=== PATIENT | female | born 1955 | race Caucasian/White ===

== ENCOUNTER 2018-06-21 15:37 | Outpatient (CLI) | payer BC | END 2018-06-21 15:38 | disposition home or self-care (01) | LOC: BICMAMMO 15:37 | PROVIDERS: ATTEND Internal Medicine | DX: Z12.31 Encounter for screening mammogram for malignant neoplasm of breast (principal) | CPT/HCPCS: 77063; 77067 ==

== ENCOUNTER 2020-01-13 07:38 | Outpatient (CLI) | payer MEDICARE ==
--- NOTE | 2020-01-13 08:32 | BD ---
DEXA bone density examination HISTORY: 64-year-old postmenopausal female for screening. Osteopenia. COMPARISON: None FINDINGS: L1--bone mineral density 0.953 g/sq cm; T score -0.3 L2--bone mineral density 1.157 g/sq cm; T score 1.2 L3--bone mineral density 1.122 g/sq cm; T score 0.3 L4--bone mineral density 1.237 g/sq cm; T score 1.6 Total L1-L4--bone mineral density 1.126 g/sq cm; T score 0.7 Left femoral neck--bone mineral density0.632 g/sq cm; T score -2.0 Total proximal left femur--bone mineral density 0.883 g/sq cm ; T score -0.5 Degenerative changes are seen in the lumbar spine which may falsely elevate bone mineral density and underestimate risk for fracture. IMPRESSION: 1. Normal bone mineralization of the lumbar spine. 2. Moderate osteopenia left femoral neck. 3. The 10 year major osteoporotic risk fracture is 17% with 10 year hip fracture risk of 1.7%.
--- NOTE | 2020-01-13 08:42 | MMO ---
Bilateral MAMMO Bilat Screen [facility]. CLINICAL HISTORY: Patient is 64 years old and is seen for screening. The patient has no family history of breast cancer. The patient has no personal history of cancer. VIEWS: The views performed were: bilateral craniocaudal with tomosynthesis and bilateral mediolateral oblique with tomosynthesis. FILMS COMPARED: The present examination has been compared to a prior imaging study performed at [facility] on 06/21/2018. This study has been interpreted with the assistance of computer-aided detection. MAMMOGRAM FINDINGS: The breasts are heterogeneously dense, which could obscure a lesion on mammography. There are benign appearing calcifications seen in the right breast. There are no suspicious masses, suspicious calcifications, or new areas of architectural distortion. IMPRESSION: THERE IS NO MAMMOGRAPHIC EVIDENCE OF MALIGNANCY. A ROUTINE FOLLOW-UP MAMMOGRAM IN 1 YEAR IS RECOMMENDED. THE RESULTS OF THIS EXAM WERE SENT TO THE PATIENT. ACR BI-RADS Category 2 - Benign finding MAMMOGRAPHY NOTE: 1. A negative mammogram report should not delay a biopsy if a dominant of clinically suspicious mass is present. 2. Approximately 10% to 15% of breast cancers are not detected by mammography. 3. Adenosis and dense breasts may obscure an underlying neoplasm. Reported by: ROMELIA HAMPTON MD Electonically Signed: [id number]
== END 2020-01-13 07:39 | disposition home or self-care (01) ==
LOC: BICMAMMO 07:38
PROVIDERS: ATTEND Internal Medicine
DX: Z12.31 Encounter for screening mammogram for malignant neoplasm of breast (principal); M85.852 Other specified disorders of bone density and structure, left thigh
CPT/HCPCS: 77063; 77067; 77080

== ENCOUNTER 2022-03-07 12:22 | Outpatient (CLI) | payer MEDICARE | END 2022-03-07 12:23 | disposition home or self-care (01) | LOC: BICRAD 12:22 | PROVIDERS: ATTEND Internal Medicine | DX: M54.50 Low back pain, unspecified (principal); M47.816 Spondylosis without myelopathy or radiculopathy, lumbar region | CPT/HCPCS: 72100; 82306; 82607; 82728; 82746; 83540; 83550 ==

== ENCOUNTER 2022-03-22 09:01 | Outpatient (CLI) | payer MEDICARE | END 2022-03-22 09:02 | disposition home or self-care (01) | LOC: MRI 09:01 | PROVIDERS: ATTEND Internal Medicine | DX: M51.36 Other intervertebral disc degeneration, lumbar region (principal); M47.816 Spondylosis without myelopathy or radiculopathy, lumbar region; R20.2 Paresthesia of skin | CPT/HCPCS: 72148 ==

== ENCOUNTER 2022-04-21 13:49 | Outpatient (CLI) | payer MEDICARE | END 2022-04-21 13:50 | disposition home or self-care (01) | LOC: BICCT 13:49 | PROVIDERS: ATTEND Surgery | DX: M48.02 Spinal stenosis, cervical region (principal); M43.12 Spondylolisthesis, cervical region; M47.812 Spondylosis without myelopathy or radiculopathy, cervical region; M40.202 Unspecified kyphosis, cervical region | CPT/HCPCS: 72125 ==

== ENCOUNTER 2022-05-09 10:52 | Outpatient (CLI) | payer MEDICARE | END 2022-05-09 10:53 | disposition home or self-care (01) | LOC: LABBT 10:52 | PROVIDERS: ATTEND Surgery | DX: Z01.818 Encounter for other preprocedural examination (principal); M48.02 Spinal stenosis, cervical region; M50.10 Cervical disc disorder with radiculopathy, unspecified cervical region; M47.22 Other spondylosis with radiculopathy, cervical region; M47.12 Other spondylosis with myelopathy, cervical region; M50.00 Cervical disc disorder with myelopathy, unspecified cervical region | CPT/HCPCS: 80048; 85027; 85610; 85730; 86850; 86900; 86901; 93005; 93010 ==

== ENCOUNTER 2022-05-09 11:00 | Inpatient (IN) | payer MEDICARE ==
[2022-05-09 12:59] LABS: INR-International Normal Ratio 0.9; PTT 24.8 sec (22.0-33.0); Prothrombin Time 10.3 sec (9.5-12.1)
[2022-05-09 13:01] LABS: Hemoglobin 12.9 g/dL (12.0-15.5); Mean Corpuscular HGB CONC 35.1 g/dL (32.0-36.0); Mean Corpuscular Hemoglobin 30.7 pg (27.0-33.0); Mean Corpuscular Volume 87.6 fl (81.6-98.3); Mean Platelet Volume 10.7 fl (7.4-10.4); Platelet Count 256 10x3/uL (150-450); RBC Distribution Width 11.9 % (11.5-14.5); White Blood Cell (WBC) Count 6.1 10x3/uL (3.5-10.5)
[2022-05-09 13:16] LABS: Anion Gap 14 mmol/L (10-20); BUN (Urea Nitrogen) 23 mg/dL (9.8-20.1); Calc. Creatinine Clearance 0 mL/min (70-130); Calcium 9.9 mg/dL (7.8-10.44); Carbon Dioxide 26 mmol/L (23-31); Chloride 103 mmol/L (98-107); Estimated GFR 59; Glucose 96 mg/dL (80-115); Potassium 4.4 mmol/L (3.5-5.1); Sodium 139 mmol/L (136-145)
[2022-05-11 12:22] VITALS: BMI 19.0
[2022-05-12] MEDS ORDERED: Bacitracin Zinc Ointment 30 gm TUBE ONE (06:37)
[2022-05-12] MEDS ORDERED: Thrombin 5000 UNITS/5 ML VIAL ONE (06:37)
[2022-05-12] MEDS ORDERED: Levofloxacin 500 mg/D5W 100 ml Premix Bag ONE (06:40)
[2022-05-12] MEDS ORDERED: Clindamycin/D5W 900 mg/50 ml Premix Bag ONE (06:40)
[2022-05-12] MEDS ORDERED: Scopolamine 1.5 mg/72 hour Patch ONE (06:46)
[2022-05-12] MEDS ORDERED: Metoclopramide HCl 10 MG/2 ML VIAL ONE (06:46)
[2022-05-12] MEDS ORDERED: Famotidine/PF 20 mg/2ml Vial ONE (06:46)
[2022-05-12] MEDS ORDERED: Promethazine HCl 25 MG/ML VIAL ONE (07:06)
[2022-05-12] MEDS ORDERED: Propofol 500 MG/50 ML VIAL ONE (07:07)
[2022-05-12] MEDS ORDERED: fentaNYL PF 100 MCG/2 ML SYRINGE ONE ×2 (07:08→13:52)
[2022-05-12 07:10] LABS: SARS-CoV-2 NAA Rapid Test Not Detected (NotDetected)
[2022-05-12] MEDS ORDERED: Rocuronium Bromide 10 MG/ML (10ML VIAL) ONE (07:32)
[2022-05-12] MEDS ORDERED: Vecuronium 10 MG VIAL ONE (07:32)
[2022-05-12] MEDS ORDERED: Dexamethasone 20 MG/5 ML VIAL ONE (07:32)
[2022-05-12] MEDS ORDERED: NEOSTIGMINE 3 MG/3 ML SYR 3 MG/3 ML SYRINGE ONE (07:32)
[2022-05-12] MEDS ORDERED: Glycopyrrolate 0.2 MG/ML 5 ML SYRINGE ONE (07:32)
[2022-05-12] MEDS ORDERED: PHENYLEPHRINE-NS 100 MCG/ML 10 ML SYRINGE ONE (07:32)
[2022-05-12] MEDS ORDERED: Ondansetron PF 4 MG/2 ML Vial ONE (07:32)
[2022-05-12] MEDS ORDERED: PROPOFOL 200 MG/20 ML VIAL ONE (07:32)
[2022-05-12] MEDS ORDERED: HYDROmorphone 2 MG/ML VIAL ONE (11:18)
[2022-05-12] MEDS ORDERED: Phenylephrine 10 MG/ML VIAL ONE (11:31)
[2022-05-12] MEDS ORDERED: FENTANYL 500 MCG/10 ML VIAL 2,000 MCG in Sodium Chloride 0.9% 60 ML IV PRN (13:07)
[2022-05-12] MEDS ORDERED: Ondansetron HCl/PF 4 MG/2 ML Vial IVP PRN (13:07)
[2022-05-12] MEDS ORDERED: diphenhydrAMINE 50 MG/ML VIAL IM PRN (13:07)
[2022-05-12] MEDS ORDERED: diphenhydrAMINE 25 MG CAP PO PRN ×2 (13:07→15:08)
[2022-05-12] MEDS ORDERED: Promethazine HCl 25 MG/ML VIAL IM PRN ×2 (13:07)
[2022-05-12] MEDS ORDERED: Naloxone HCl 0.4 mg/ml Vial IV PRN (13:07)
[2022-05-12] MEDS ORDERED: Promethazine HCl 25 MG/ML VIAL IVPB PRN (13:07)
[2022-05-12] MEDS ORDERED: diphenhydrAMINE 50 MG/ML VIAL IVP PRN (13:07)
[2022-05-12] MEDS ORDERED: Communication Order-Pharmacy FS SCH (13:15)
[2022-05-12] MEDS ORDERED: Acetaminophen 325 MG TAB PO PRN (13:46)
[2022-05-12] MEDS ORDERED: Promethazine HCl 12.5 MG in Sodium Chloride 0.9% 50 ML IVPB PRN (13:48)
[2022-05-12] MEDS ORDERED: Chloraseptic Spray 180 ml Bottle PO PRN (13:48)
[2022-05-12] MEDS ORDERED: hydrALAZINE 20 MG/ML VIAL SLOW IVP PRN (13:48)
[2022-05-12] MEDS ORDERED: Polyethylene Glycol 3350 17 GM Packet PO PRN (13:48)
[2022-05-12] MEDS ORDERED: Cepastat Lozenges 1 LOZ PO PRN (13:48)
[2022-05-12] MEDS ORDERED: Bisacodyl 5 MG TAB PO PRN (13:48)
[2022-05-12] MEDS ORDERED: hydrALAZINE 20 MG/ML VIAL ONE (14:35)
[2022-05-12] MEDS ORDERED: SYSTANE GEL OPHTH DROPS 10 ML EA EYE PRN (16:00)
[2022-05-12] MEDS ORDERED: Ketotifen Fumarate 0.025% Ophth Soln 5 ml Bottle EA EYE PRN (16:02)
[2022-05-12] MEDS: Clindamycin/D5W 900 MG in Premix Bag 1 BAG IVPB SCH ×2 (16:50→20:39)
[2022-05-12] MEDS: Sodium Chloride 0.9% 1,000 ML IV SCH (16:50)
[2022-05-12] MEDS: Calcium Carbonate 600 MG TAB PO SCH (20:39)
[2022-05-12] MEDS: Docusate 100 MG CAP PO SCH (20:39)
[2022-05-12] MEDS: Ondansetron PF 4 MG/2 ML Vial IVP PRN (20:46)
[2022-05-13] MEDS: Sodium Chloride 0.9% 1,000 ML IV SCH ×2 (04:33→18:07)
[2022-05-13 06:27] LABS: #Lymphocytes 0.6 thou/uL (1.20-3.40); #Monocytes 0.9 thou/uL (0.11-0.59); #Neutrophils 8.7 thou/uL (1.40-6.50); %Basophils 0.2 % (0.0-1.0); %Eosinophils 0.1 % (0.0-10.0); %Lymphocytes 5.5 % (21.0-51.0); %Monocytes 8.7 % (0.0-10.0); %Neutrophils 85.5 % (42.0-75.0); Hemoglobin 10.7 g/dL (12.0-16.0); Mean Corpuscular HGB CONC 31.9 g/dL (32.0-36.0); Mean Corpuscular Hemoglobin 29.8 pg (27.0-31.0); Mean Corpuscular Volume 93.4 fl (78.0-98.0); Mean Platelet Volume 8.1 fL (7.4-10.4); Platelet Count 193 thou/uL (130-400); RBC Distribution Width 11.2 % (11.5-14.5); White Blood Cell (WBC) Count 10.1 thou/uL (4.8-10.8)
[2022-05-13 06:57] LABS: Anion Gap 12 mmol/L (10-20); BUN (Urea Nitrogen) 17 mg/dL (9.8-20.1); Calc. Creatinine Clearance 51 mL/min (70-130); Calcium 8.6 mg/dL (7.8-10.44); Carbon Dioxide 23 mmol/L (23-31); Chloride 101 mmol/L (98-107); Estimated GFR 70; Glucose 142 mg/dL (80-115); Sodium 132 mmol/L (136-145)
[2022-05-13] MEDS: Clindamycin/D5W 900 MG in Premix Bag 1 BAG IVPB SCH ×3 (07:19→21:29)
[2022-05-13] MEDS: Magnesium Oxide 400 MG TAB PO SCH ×2 (09:22→09:24)
[2022-05-13] MEDS: Zinc Sulfate 220 MG CAP PO SCH (09:23)
[2022-05-13] MEDS: Docusate 100 MG CAP PO SCH ×2 (09:23→20:00)
[2022-05-13] MEDS: Lisinopril 10 MG TAB PO SCH (09:23)
[2022-05-13] MEDS: Calcium Carbonate 600 MG TAB PO SCH ×3 (09:23→20:00)
[2022-05-13] MEDS: Multivit, Therapeutic 1 TAB PO SCH (09:24)
[2022-05-13] MEDS ORDERED: Ketotifen Fumarate 0.025% Ophth Soln 5 ml Bottle R EYE PRN (12:17)
[2022-05-14] MEDS: Ondansetron PF 4 MG/2 ML Vial IVP PRN ×3 (01:33→20:04)
[2022-05-14] MEDS: Clindamycin/D5W 900 MG in Premix Bag 1 BAG IVPB SCH ×3 (06:11→20:04)
[2022-05-14] MEDS: Sodium Chloride 0.9% 1,000 ML IV SCH ×3 (06:11→18:00)
[2022-05-14] MEDS: Calcium Carbonate 600 MG TAB PO SCH ×2 (08:34→20:05)
[2022-05-14] MEDS: Zinc Sulfate 220 MG CAP PO SCH (08:34)
[2022-05-14] MEDS: Multivit, Therapeutic 1 TAB PO SCH ×2 (08:34→08:37)
[2022-05-14] MEDS: Magnesium Oxide 400 MG TAB PO SCH (08:34)
[2022-05-14] MEDS: Lisinopril 10 MG TAB PO SCH (08:34)
[2022-05-14] MEDS: Docusate 100 MG CAP PO SCH ×2 (08:34→20:05)
[2022-05-15] MEDS: Clindamycin/D5W 900 MG in Premix Bag 1 BAG IVPB SCH (05:46)
[2022-05-15] MEDS ORDERED: Fentanyl 100 MCG/2 ML VIAL SLOW IVP PRN (08:42)
[2022-05-15] MEDS ORDERED: Diazepam 5 MG TAB PO PRN (08:43)
[2022-05-15] MEDS: Zinc Sulfate 220 MG CAP PO SCH (08:53)
[2022-05-15] MEDS: Lisinopril 10 MG TAB PO SCH (08:53)
[2022-05-15] MEDS: Docusate 100 MG CAP PO SCH ×2 (08:53→20:32)
[2022-05-15] MEDS: Calcium Carbonate 600 MG TAB PO SCH ×2 (09:14→20:32)
[2022-05-15] MEDS: Sodium Chloride 0.9% 1,000 ML IV SCH ×2 (09:14→23:35)
[2022-05-15] MEDS: Magnesium Oxide 400 MG TAB PO SCH (09:14)
[2022-05-15] MEDS: Multivit, Therapeutic 1 TAB PO SCH (09:14)
[2022-05-15] MEDS: Acetaminophen/Codeine 30-300mg Tablet PO PRN ×2 (11:15→16:31)
[2022-05-15] MEDS: HYDROcodone/Acetaminophen 7.5/325 mg Tablet PO PRN ×2 (13:24→20:30)
[2022-05-16] MEDS: HYDROcodone/Acetaminophen 7.5/325 mg Tablet PO PRN ×2 (02:39→15:37)
[2022-05-16] MEDS ORDERED: diphenhydrAMINE 25 MG CAP PO SCH (07:45)
[2022-05-16] MEDS: Magnesium Oxide 400 MG TAB PO SCH (08:17)
[2022-05-16] MEDS: Docusate 100 MG CAP PO SCH ×2 (08:18→20:42)
[2022-05-16] MEDS: Lisinopril 10 MG TAB PO SCH (08:18)
[2022-05-16] MEDS: Multivit, Therapeutic 1 TAB PO SCH (08:19)
[2022-05-16] MEDS: Calcium Carbonate 600 MG TAB PO SCH ×2 (08:19→20:51)
[2022-05-16] MEDS: Zinc Sulfate 220 MG CAP PO SCH (08:19)
[2022-05-16] MEDS: Acetaminophen/Codeine 30-300mg Tablet PO PRN ×2 (08:24→20:42)
[2022-05-16] MEDS: Sodium Chloride 0.9% 1,000 ML IV SCH (11:23)
[2022-05-16] MEDS ORDERED: Labetalol HCl 100 MG/20 ML VIAL SLOW IVP SCH (22:30)
[2022-05-17] MEDS: HYDROcodone/Acetaminophen 7.5/325 mg Tablet PO PRN ×3 (00:29→20:39)
[2022-05-17] MEDS: Sodium Chloride 0.9% 1,000 ML IV SCH ×2 (01:09→10:42)
[2022-05-17] MEDS: Acetaminophen/Codeine 30-300mg Tablet PO PRN ×2 (03:45→16:06)
[2022-05-17] MEDS: Lisinopril 10 MG TAB PO SCH (08:36)
[2022-05-17] MEDS: Docusate 100 MG CAP PO SCH ×2 (08:37→20:39)
[2022-05-17] MEDS: Zinc Sulfate 220 MG CAP PO SCH (08:39)
[2022-05-17] MEDS: Magnesium Oxide 400 MG TAB PO SCH (08:39)
[2022-05-17] MEDS: Calcium Carbonate 600 MG TAB PO SCH ×2 (08:39→20:48)
[2022-05-17] MEDS: Multivit, Therapeutic 1 TAB PO SCH (08:39)
[2022-05-18] MEDS: HYDROcodone/Acetaminophen 7.5/325 mg Tablet PO PRN ×4 (02:17→21:57)
[2022-05-18] MEDS: Sodium Chloride 0.9% 1,000 ML IV SCH ×2 (06:11→20:17)
[2022-05-18] MEDS: Ondansetron PF 4 MG/2 ML Vial IVP PRN (09:40)
[2022-05-18] MEDS: Multivit, Therapeutic 1 TAB PO SCH ×2 (09:41→18:06)
[2022-05-18] MEDS: Zinc Sulfate 220 MG CAP PO SCH (09:41)
[2022-05-18] MEDS: Docusate 100 MG CAP PO SCH ×2 (09:41→21:58)
[2022-05-18] MEDS: Lisinopril 10 MG TAB PO SCH (09:41)
[2022-05-18] MEDS: Magnesium Oxide 400 MG TAB PO SCH ×2 (09:41→17:48)
[2022-05-18] MEDS: Calcium Carbonate 600 MG TAB PO SCH ×3 (09:43→21:56)
[2022-05-18] MEDS: Acetaminophen/Codeine 30-300mg Tablet PO PRN (17:36)
[2022-05-19] MEDS: Sodium Chloride 0.9% 1,000 ML IV SCH ×2 (03:28→18:33)
[2022-05-19] MEDS: Ondansetron PF 4 MG/2 ML Vial IVP PRN ×2 (04:15→12:04)
[2022-05-19] MEDS: HYDROcodone/Acetaminophen 7.5/325 mg Tablet PO PRN ×4 (04:32→23:44)
[2022-05-19] MEDS: Docusate 100 MG CAP PO SCH ×2 (10:27→22:01)
[2022-05-19] MEDS: Lisinopril 10 MG TAB PO SCH (10:27)
[2022-05-19] MEDS: Calcium Carbonate 600 MG TAB PO SCH ×2 (10:42→22:01)
[2022-05-19] MEDS: Magnesium Oxide 400 MG TAB PO SCH (10:42)
[2022-05-19] MEDS: Zinc Sulfate 220 MG CAP PO SCH (10:42)
[2022-05-19] MEDS: Multivit, Therapeutic 1 TAB PO SCH (10:42)
[2022-05-20] MEDS: HYDROcodone/Acetaminophen 7.5/325 mg Tablet PO PRN (06:46)
[2022-05-20] MEDS ORDERED: Ondansetron PF 4 MG/2 ML Vial IVP PRN (07:25)
[2022-05-20] MEDS: Lisinopril 10 MG TAB PO SCH (07:54)
[2022-05-20] MEDS: Docusate 100 MG CAP PO SCH (07:54)
[2022-05-20] MEDS: Sodium Chloride 0.9% 1,000 ML IV SCH (07:55)
[2022-05-20] MEDS: Calcium Carbonate 600 MG TAB PO SCH (07:55)
[2022-05-20] MEDS: Magnesium Oxide 400 MG TAB PO SCH (07:55)
[2022-05-20] MEDS: Multivit, Therapeutic 1 TAB PO SCH (07:56)
[2022-05-20 07:57] VITALS: BP 135/82
[2022-05-20] MEDS: Zinc Sulfate 220 MG CAP PO SCH (07:57)
[2022-05-20 08:20] VITALS: TEMP 98
[2022-05-20] MEDS ORDERED: Pantoprazole 40 MG VIAL IVP SCH (09:00)
== END 2022-05-20 11:49 | disposition home health service (06) | DRG 472 ==
LOC: SURG A 05-12 05:56 → EDSTATUS 05-12 11:00 → SURG A 05-12 16:01
PROVIDERS: ADMIT Surgery; ATTEND Surgery
PROC: 0RG2071 Fusion of 2 or more Cervical Vertebral Joints with Autologous Tissue Substitute, Posterior Approach, Posterior Column, Open Approach (ICD-10-PCS; principal; 2022-05-12)
PROC: 0RB30ZZ Excision of Cervical Vertebral Disc, Open Approach (ICD-10-PCS; 2022-05-12)
PROC: 01N10ZZ Release Cervical Nerve, Open Approach (ICD-10-PCS; 2022-05-12)
DX: M48.02 Spinal stenosis, cervical region (principal); M47.12 Other spondylosis with myelopathy, cervical region; M50.01 Cervical disc disorder with myelopathy, high cervical region; Z20.822 Contact with and (suspected) exposure to COVID-19; M50.11 Cervical disc disorder with radiculopathy, high cervical region; I10 Essential (primary) hypertension; E78.5 Hyperlipidemia, unspecified; M19.90 Unspecified osteoarthritis, unspecified site; Z88.1 Allergy status to other antibiotic agents; Z79.899 Other long term (current) drug therapy
CPT/HCPCS: 36415; 80048; 85025; 85027; 85610; 85730; 86850; 86900; 86901; 87811; 93005; 93010; 93970; C1713; C1768; C1776; C9113; J0360; J1100; J1170; J1200; J1956; J2370; J2405; J2550; J2704; J2765; J3370; J3490; J7050; S0028; U0002

== ENCOUNTER 2022-06-21 15:43 | Outpatient (CLI) | payer MEDICARE | END 2022-06-21 15:44 | disposition home or self-care (01) | LOC: BICRAD 15:43 | PROVIDERS: ATTEND Surgery | DX: M54.12 Radiculopathy, cervical region (principal); Z98.890 Other specified postprocedural states | CPT/HCPCS: 72040 ==

== ENCOUNTER 2023-03-27 08:51 | Outpatient (CLI) | payer MEDICARE | END 2023-03-27 08:52 | disposition home or self-care (01) | LOC: BICMAMMO 08:51 | PROVIDERS: ATTEND Internal Medicine | DX: Z12.31 Encounter for screening mammogram for malignant neoplasm of breast (principal); Z13.820 Encounter for screening for osteoporosis; M81.0 Age-related osteoporosis without current pathological fracture; M85.852 Other specified disorders of bone density and structure, left thigh; Z78.0 Asymptomatic menopausal state | CPT/HCPCS: 77063; 77067; 77080 ==

== ENCOUNTER 2025-03-31 10:22 | Outpatient (CLI) | payer MEDICARE | END 2025-03-31 10:23 | disposition home or self-care (01) | LOC: BICMAMMO 10:22 | PROVIDERS: ATTEND Internal Medicine | DX: Z12.31 Encounter for screening mammogram for malignant neoplasm of breast (principal); Z78.0 Asymptomatic menopausal state; M81.0 Age-related osteoporosis without current pathological fracture | CPT/HCPCS: 77063; 77067; 77080 ==